=== PATIENT | male | born 2000 | race Caucasian/White ===

== ENCOUNTER 2020-05-18 23:36 | Emergency (ER) | payer SELFPAY ==
--- NOTE | 2020-05-18 23:43 | EDM.PDOC ---
ED HPI GENERAL MEDICAL PROBLEM - General Chief Complaint: Genitourinary Problem Stated Complaint: burning urination Time Seen by Provider: 05/18/20 23:36 Source of Information: Reports: Patient History Limitations: Reports: No Limitations - History of Present Illness INITIAL COMMENTS - FREE TEXT/NARRATIVE: Patient comes into the emergency department with concerns of burning with urination and incontinence. Patient states that it started approximately 48 hours ago. Patient states that is slowly progressed throughout the day into tonight suggested coming in and getting checked out for he should not wait through the weekend. Patient denies any fever, nausea, vomiting, GI upset, chest pain, shortness of breath, or peripheral edema. Patient denies any new sexual partners or unprotected sex in the last 60 days. Patient also denies any abnormal discharge or foul smell. Denies ever having an STI urinary tract infections as an adult. He also denies any COVID-19 symptoms and states he is been relatively healthy and has no other concerns or complaints for today's visit. Onset: Gradual Severity: Mild Improves with: Reports: None Worsens with: Reports: None Associated Symptoms: Reports: No Other Symptoms - Related Data Allergies Allergy/AdvReac Type Severity Reaction Status Date / Time No Known Allergies Allergy Verified 05/18/20 23:36 Home Meds: Home Meds . [No Known Home Meds] 05/18/20 [History] ED ROS GENERAL - Review of Systems Review Of Systems: Comprehensive ROS is negative, except as noted in HPI. Constitutional: Reports: No Symptoms HEENT: Reports: No Symptoms Respiratory: Reports: No Symptoms Cardiovascular: Reports: No Symptoms Endocrine: Reports: No Symptoms GI/Abdominal: Reports: No Symptoms : Reports: No Symptoms Musculoskeletal: Reports: No Symptoms Skin: Reports: No Symptoms Neurological: Reports: No Symptoms Psychiatric: Reports: No Symptoms Hematologic/Lymphatic: Reports: No Symptoms Immunologic: Reports: No Symptoms ED EXAM, GENERAL - Physical Exam Exam: See Below Exam Limited By: No Limitations General Appearance: Alert, WD/WN, No Apparent Distress Head: Atraumatic, Normocephalic Back Exam: Normal Inspection, Full Range of Motion Extremities: Normal Inspection, Normal Range of Motion Neurological: Alert, Oriented, Normal Gait Psychiatric: Normal Affect, Normal Mood Skin Exam: Warm, Dry, Intact Course - Orders/Labs/Meds Orders: Active Orders 24 hr Category Date Time Status UA RFX KILO AND CULT IF INDIC [URIN] Stat Lab 05/18/20 23:37 Ordered Departure - Departure Time of Disposition: 23:50 Disposition: Home, Self-Care 01 Condition: Good Clinical Impression: Burning with urination, Bladder irritability - Discharge Information *PRESCRIPTION DRUG MONITORING PROGRAM REVIEWED*: Not Applicable *COPY OF PRESCRIPTION DRUG MONITORING REPORT IN PATIENT JESSICA: Not Applicable Instructions: Urinary Incontinence Additional Instructions: 1. rest 2. increase your water intake 3. Continue all at home medications 4. Activity and diet as tolerated 5. Can take over the counter Tylenol or ibuprofen for any pain or discomfort 6. Follow up with PCP if symptoms continue, return, or progress 7. Call with any questions or concerns - My Orders Last 24 Hours: My Active Orders 05/18/20 23:37 UA RFX KILO AND CULT IF INDIC [URIN] Stat - Assessment/Plan Last 24 Hours: My Active Orders 05/18/20 23:37 UA RFX KILO AND CULT IF INDIC [URIN] Stat Assessment:: 1. Urinary burning 2. Urinary incontinence Plan: 1. UA/UC- negative 2. Patient and nursing staff was updated regarding the plan of care 3. Education provided the patient regarding activity, diet, rest, [id number] medication modalities, and follow-up care was provided 4. Patient and family are agreeable to the above plan of care 5. All questions and concerns were addressed with the patient and family prior to discharge
== END 2020-05-18 23:56 | disposition home or self-care (01) ==
LOC: VM.ED 23:36
DX: N32.89 Other specified disorders of bladder (principal); R32 Unspecified urinary incontinence
CPT/HCPCS: 81002; 99283; 99283-GF